=== PATIENT | female | born 2000 | race Caucasian/White ===

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

== ENCOUNTER 2022-04-09 09:49 | Outpatient (CLI) | payer BC | END 2022-04-09 09:50 | disposition home or self-care (01) | LOC: ULT 09:49 | PROVIDERS: ATTEND Internal Medicine | DX: Z13.6 Encounter for screening for cardiovascular disorders (principal); E04.9 Nontoxic goiter, unspecified; G43.109 Migraine with aura, not intractable, without status migrainosus; Q79.62 Hypermobile Ehlers-Danlos syndrome; M26.623 Arthralgia of bilateral temporomandibular joint; G90.9 Disorder of the autonomic nervous system, unspecified; R53.82 Chronic fatigue, unspecified | CPT/HCPCS: 76536; 76775 ==